=== PATIENT | male | born 1960 | race Caucasian/White ===

== ENCOUNTER → 2023-06-02 | Emergency (ER) | payer OTHER ==
[~2023-06-02] MED LIST: ACETAMINOPHEN 500 MG TAB ONE
--- NOTE | 2023-06-02 11:21 | RAD REPORT ---
EXAM DESCRIPTION: CT - Head C Spine Mpr Wo Con - 06/02/2023 11:05 am CLINICAL HISTORY: Head and neck injury status post fall. Head and neck pain COMPARISON: None. TECHNIQUE: Computed axial tomography of the head and cervical spine was obtained. Sagittal and coronal reconstruction was performed. All CT scans are performed using dose optimization technique as appropriate and may include automated exposure control or mA/KV adjustment according to patient size. FINDINGS: An intracranial bleed is not seen. The ventricles are normal in caliber. No significant hypodensity within the brain. An extra-axial fluid collection is not noted. Fluid within the visualized sinuses and mastoids is not seen A cervical fracture is not visualized. No dislocation is noted. Moderate to marked spondylosis cervical spine IMPRESSION: No acute intracranial abnormality is seen. A cervical fracture is not visualized. If the patient continues to have symptoms to suggest intracranial /spinal cord pathology then MRI wou ld be recommended
--- NOTE | 2023-06-02 12:01 | ER ---
Nurse's Notes [facility] Name: Alistair Bettencourt Age: 63 yrs Sex: Male : 1960 Arrival Date: 06/02/2023 Time: 10:44 Bed 7 Private MD: Diagnosis: Mechanical fall;Closed head injury Presentation: 06/01 10:41 Chief complaint: EMS states: Slipped and fell, inmate reported LOC, awake/alert upon [facility] medic arrival. co head, neck, back pain. C collar in place. Does not take blood thinners. 10:41 Acuity: BRENNAN 3 nj1 10:41 Method Of Arrival: EMS: [facility] nj1 10:41 Care prior to arrival: Cervical collar in place. Glucose check: 123 Oxygen nj1 administered. via nasal cannula. Mechanism of Injury: Fall from standing position. Trauma event details: Injury occurred: [facility]. 10:45 Coronavirus screen: Vaccine status: Patient reports receiving the 2nd dose of the covid nj1 vaccine. Ebola Screen: Patient denies travel to an Ebola-affected area in the 21 days before illness onset. Risk Assessment: Do you want to hurt yourself or someone else? Patient reports no desire to harm self or others. 10:45 Initial Sepsis Screen: Does the patient meet any 2 criteria? HR > 90 bpm. No. Patient's [facility] initial sepsis screen is negative. Does the patient have a suspected source of infection? No. Patient's initial sepsis screen is negative. Onset of symptoms. Historical: - Allergies: 10:57 No Known Allergies; nj1 - PMHx: 10:53 Chronic obstructive lung disease; Hepatitis C; Gastric reflux; nj1 - Immunization history:: Client reports receiving the 2nd dose of the Covid vaccine. - Social history:: Smoking status: Patient/guardian denies using tobacco, but has a distant history of tobacco abuse. Screenin:56 [facility] ED Fall Risk Assessment (Adult) History of falling in the last 3 months, [facility] including since admission Yes- single mechanical fall (1 pt) Confusion or Disorientation No (0 pts) Intoxicated or Sedated No (0 pts) Impaired Gait No (0 pts) Mobility Assist Device Used No (0 pt) Altered Elimination No (0 pt) Score/Fall Risk Level 0 - 2 = Low Risk Oriented to surroundings, Maintained a safe environment, Hourly rounding (assess needs \T\ fall precautionary measures) done. Abuse screen: Denies threats or abuse. Denies injuries from another. Nutritional screening: No deficits noted. Tuberculosis screening: No symptoms or risk factors identified. Primary Survey: 10:58 NO uncontrolled hemorrhage observed. Breathing/Chest: Spontaneous respiratory effort, nj1 equal unlabored respirations, breath sounds clear bilaterally, regular pattern, symmetrical chest rise and fall. Circulation: No external hemorrhage present. Regular and strong central pulse, skin warm/dry/normal color. Disability Client is alert. Assessment: 10:54 General: Appears in no apparent distress. uncomfortable, Behavior is calm, cooperative, nj1 appropriate for age. Pain: Complains of pain in head, neck and back Pain currently is 5 out of 10 on a pain scale. Neuro: Level of Consciousness is awake, alert, obeys commands, Oriented to person, place, time, situation. Cardiovascular: Patient's skin is warm and dry. Respiratory: Airway is patent Respiratory effort is even, unlabored. 11:00 Injury Description: Abrasion sustained to scalp is minimal bleeding, no need for nj1 pressure dressing. 11:04 Reassessment: In imaging. nj1 12:40 Reassessment: Patient appears in no apparent distress at this time. Patient is alert, nj1 oriented x 3, equal unlabored respirations, skin warm/dry/pink. Patient states feeling better. Vital Signs: 10:45 BP 99 / 81; Pulse 106; Resp 18; Temp 97.5(O); Pulse Ox 94% on R/A; Weight 85.28 kg; nj1 Height 5 ft. 9 in. ; Pain 5/10; 12:00 BP 111 / 80; Pulse 97; Resp 17; Pulse Ox 96% on R/A; nj1 12:40 BP 113 / 77; Pulse 97; Resp 16; Pulse Ox 96% on R/A; nj1 10:45 Body Mass Index 27.76 (85.28 kg, 175.26 cm) nj1 10:45 Pain Scale: Adult nj1 Ron Coma Score: 10:58 Eye Response: spontaneous(4). Motor Response: obeys commands(6). Verbal Response: nj1 oriented(5). Total: 15. Trauma Score (Adult): 10:58 Eye Response: spontaneous(1); Verbal Response: oriented(1); Motor Response: obeys nj1 commands(2); Systolic BP: > 89 mm Hg(4); Respiratory Rate: 10 to 29 per min(4); Section Score: 15; Trauma Score: 12 ED Course: 10:48 Patient arrived in ED. aa5 10:48 Jonatan Mares MD is Attending Physician. rt 10:49 Aparna Moore, RN is Primary Nurse. nj1 10:50 Oxygen administration via nasal cannula \T\ 1L/min. Thermoregulation: warm blanket given nj1 to patient. 10:52 Triage completed. nj1 10:54 Arm band placed on right wrist. nj1 11:00 Patient has correct armband on for positive identification. Bed in low position. Call nj1 light in reach. Side rails up X 1. [facility] guards at bedside. Provided Education on: call light, c collar. 11:06 CT Head C Spine In Process Unspecified. EDMS 12:40 Wound care: to abrasion, located on scalp was cleaned with with Hydroxide peroxide, nj1 Patient tolerated well. 12:45 No provider procedures requiring assistance completed. nj1 12:45 Patient did not have IV access during this emergency room visit. nj1 Administered Medications: 11:20 Drug: Acetaminophen PO 1000 mg PO once Route: PO; nj1 12:45 Follow up: Response: No adverse reaction; Pain is decreased nj1 Medication: 12:50 VIS not applicable for this client. nj1 Outcome: 12:00 Discharge ordered by . rt 12:45 Discharged to [employer] nj1 12:45 Condition: stable 12:45 Discharge instructions given to patient, school crossing guard Instructed on discharge instructions, follow up and referral plans. Demonstrated understanding of instructions, follow-up care, 12:57 Patient left the ED. nj1 Signatures: Dispatcher [employer] EDLA Michelle Tinoco RN RN aa5 Jonatan Mares MD MD rt Aparna Moore RN RN nj1 Corrections: (The following items were deleted from the chart) 13:04 10:54 General: Appears in no apparent distress. uncomfortable, Behavior is calm, nj1 cooperative, appropriate for age, nj1
--- NOTE | 2023-06-02 12:01 | EDPHYS ---
Physician Documentation [facility] Name: Alistair Bettencourt Age: 63 yrs Sex: Male : 1960 Arrival Date: 06/02/2023 Time: 10:44 Bed 7 Private MD: ED Physician Jonatan Mares HPI: 06/01 10:49 This 63 yrs old Male presents to ER via Unassigned with complaints of Fall Injury. rt 10:49 Patient presents to the ED with a slip and fall with injury to the back of the head rt that occurred about 1 hour prior to arrival. This occurred at present. The patient reportedly did have a loss of consciousness with spontaneous return of consciousness. Reports an abrasion to the back of the head. Reports neck pain. Denies other acute complaints at this time, symptoms are mild in severity, no other aggravating or alleviating factors.. Historical: - Allergies: 10:57 No Known Allergies; nj1 - PMHx: 10:53 Chronic obstructive lung disease; Hepatitis C; Gastric reflux; nj1 - Immunization history:: Client reports receiving the 2nd dose of the Covid vaccine. - Social history:: Smoking status: Patient/guardian denies using tobacco, but has a distant history of tobacco abuse. ROS: 10:49 Constitutional: Negative for fever, chills, and weight loss, Respiratory: Negative for rt shortness of breath, cough, wheezing, and pleuritic chest pain, Abdomen/GI: Negative for abdominal pain, nausea, vomiting, diarrhea, and constipation, MS/Extremity: Negative for injury and deformity, Psych: Negative for depression, anxiety, suicide ideation, homicidal ideation, and hallucinations, 10:49 Neck: Positive for pain with movement, tenderness, 10:49 Neuro: Positive for headache, loss of consciousness, Exam: 10:49 Constitutional: This is a well developed, well nourished patient who is awake, alert, rt and in no acute distress. Chest/axilla: Normal chest wall appearance and motion. Nontender with no deformity. No lesions are appreciated. Cardiovascular: Regular rate and rhythm with a normal S1 and S2. No gallops, murmurs, or rubs. Normal PMI, no JVD. No pulse deficits. Respiratory: Lungs have equal breath sounds bilaterally, clear to auscultation and percussion. No rales, rhonchi or wheezes noted. No increased work of breathing, no retractions or nasal flaring. Abdomen/GI: Soft, non-tender, with normal bowel sounds. No distension or tympany. No guarding or rebound. No evidence of tenderness throughout. Back: No spinal tenderness. No costovertebral tenderness. Full range of motion. Skin: Warm, dry with normal turgor. Normal color with no rashes, no lesions, and no evidence of cellulitis. MS/ Extremity: Pulses equal, no cyanosis. Neurovascular intact. Full, normal range of motion. Neuro: Awake and alert, GCS 15, oriented to person, place, time, and situation. Cranial nerves II-XII grossly intact. Motor strength 5/5 in all extremities. Sensory grossly intact. Cerebellar exam normal. Normal gait. Psych: Awake, alert, with orientation to person, place and time. Behavior, mood, and affect are within normal limits. 10:49 Head/face: Abrasion to the posterior scalp, no active bleeding, no other external evidence of trauma. 10:49 Neck: Mild tenderness diffusely, no step-offs, Vital Signs: 10:45 BP 99 / 81; Pulse 106; Resp 18; Temp 97.5(O); Pulse Ox 94% on R/A; Weight 85.28 kg; nj1 Height 5 ft. 9 in. ; Pain 5/10; 12:00 BP 111 / 80; Pulse 97; Resp 17; Pulse Ox 96% on R/A; nj1 12:40 BP 113 / 77; Pulse 97; Resp 16; Pulse Ox 96% on R/A; nj1 10:45 Body Mass Index 27.76 (85.28 kg, 175.26 cm) nj1 10:45 Pain Scale: Adult nj1 Ron Coma Score: 10:58 Eye Response: spontaneous(4). Motor Response: obeys commands(6). Verbal Response: nj1 oriented(5). Total: 15. Trauma Score (Adult): 10:58 Eye Response: spontaneous(1); Verbal Response: oriented(1); Motor Response: obeys nj1 commands(2); Systolic BP: > 89 mm Hg(4); Respiratory Rate: 10 to 29 per min(4); [place] Score: 15; Trauma Score: 12 MDM: 10:48 Patient medically screened. rt 13:55 Differential diagnosis: Concussion, intracranial hemorrhage, abrasion, skull fracture. rt Data reviewed: vital signs, nurses notes, radiologic studies. Independent interpretation of the following test(s) in the Emergency Department CT Scan: My interpretation is No intracranial hemorrhage seen on interpretation of CT scan images. Test considered but Not performed: Other Details Patient reports clear slip and fall, denies syncopal symptoms. EKG, labs are not indicated. Care significantly affected by the following chronic conditions: Chronic Obstructive Pulmonary Disease. Counseling: I had a detailed discussion with the patient and/or guardian regarding the historical points, exam findings, and any diagnostic results supporting the discharge/admit diagnosis, radiology results, the need for outpatient follow up. 06/01 10:49 Order name: CT Head C Spine; Complete Time: 11:23 rt Administered Medications: 11:20 Drug: Acetaminophen PO 1000 mg PO once Route: PO; nj1 12:45 Follow up: Response: No adverse reaction; Pain is decreased nj1 Disposition Summary: 06/02/23 12:00 Discharge Ordered Notes: Location: [employer] rt Problem: new rt Symptoms: have improved rt Condition: Stable rt Diagnosis - Mechanical fall rt - Closed head injury rt Followup: rt - With: Private Physician - When: 2 - 3 days - Reason: Discharge Instructions: - Discharge Summary Sheet rt - Concussion, Adult rt Forms: - Medication Reconciliation Form rt - Thank You Letter rt - Antibiotic Education rt - Prescription Opioid Use rt - Patient Portal Instructions rt - Leadership Thank You Letter rt Signatures: Dispatcher [employer] Jonatan Leahy MD MD rt Aparna Moore RN RN nj1
[2023-06-02 13:23] VITALS: BP 99/81; TEMP 97.5; O2SAT 94
== END ==
LOC: ER 10:44
DX: S00.81XA Abrasion of other part of head, initial encounter (principal); W01.0XXA Fall on same level from slipping, tripping and stumbling without subsequent striking against object, initial encounter
CPT/HCPCS: 70450; 72125; 99285

== ENCOUNTER 2023-10-27 13:42 | Emergency (ER) | payer OTHER ==
[2023-10-27 14:13] LABS: Absolute Basophils 0.1 K/uL (0-0.5); Absolute Eosinophils 0.1 K/uL (0-0.5); Absolute Lymphocytes (CBC) 1.3 K/uL (0.7-4.9); Absolute Monocytes 0.6 K/uL (0.1-1.3); Absolute Neutrophil 7.3 K/uL (1.8-8.0); Basophils % 0.5 % (0-1.3); Eosinophils % 0.9 % (0-4.4); Hematocrit 39.2 % (39.6-49.0); Hemoglobin 13.3 g/dL (13.6-17.9); MCHC 33.9 g/dL (32.0-36.0); MCV 85.6 fL (80-100); MPV 7.4 fL (7.6-11.3); Monocytes % 6.5 % (3.3-12.3); Neutrophils % 78.1 % (41.7-73.7); Nucleated RBC Absolute Count 0.1 (0-0); Nucleated Red Blood Cells % 0.7 % (0-0); Platelets 381 thou/uL (152-406); RBC Red Blood Cell Count 4.58 M/uL (4.33-5.43); Red Cell Distribution Width 14.6 % (12.1-15.2)
[2023-10-27 14:23] LABS: Albumin 3.5 g/dL (3.4-5.0); Anion Gap 9.2 mEq/L (5.0-15.0); Bilirubin Direct 0.3 mg/dL (0-0.2); Bilirubin Indirect, Calculated 0.5 mg/dL (0.2-0.8); Bilirubin Total 0.8 mg/dL (0.2-1.0); Globulin 3.4 g/dL (2.3-3.5); Magnesium 2.1 mg/dL (1.6-2.4); Potassium 4.2 mEq/L (3.5-5.1); Protein, Total 6.9 g/dL (6.4-8.2); Troponin High Sensitivity 3.4 pg/mL (<58.9)
[2023-10-27] MEDS ORDERED: LIDOCAINE 1% MPF 5 ML VIAL ONE (14:23)
--- NOTE | 2023-10-27 14:34 | RAD REPORT ---
EXAM DESCRIPTION: CT - CTHCSPWOC - 10/27/2023 2:04 pm CLINICAL HISTORY: Trauma, head and neck injury. TRAUMA COMPARISON: Head C Spine Mpr Wo Con dated 06/02/2023 TECHNIQUE: Axial 5 mm thick images of the head were obtained. Axial 2 mm thick images of the cervical spine were obtained with sagittal and coronal reconstruction images generated and reviewed. All CT scans are performed using dose optimization technique as appropriate and may include automated exposure control or mA/KV adjustment according to patient size. FINDINGS: CT HEAD WITHOUT CONTRAST: No acute hemorrhage, hydrocephalus or extra-axial collection is identified.No areas of brain edema or midline shift. Mild dense fluid is seen in the right maxillary antrum. The paranasal sinuses and mastoids otherwise clear.The calvarium is intact. CT CERVICAL SPINE WITHOUT CONTRAST: No fracture or subluxation.Moderate midcervical degenerative spondylosis.No prevertebral soft tissues swelling is identified. IMPRESSION: No acute intracranial or cervical spine findings. Moderate multilevel cervical degenerative changes.
--- NOTE | 2023-10-27 15:11 | RAD REPORT ---
EXAM DESCRIPTION: RAD - Chest Single View - 10/27/2023 2:26 pm CLINICAL HISTORY: syncope Chest pain. COMPARISON: No comparisons FINDINGS: Portable technique limits examination quality. The lungs are grossly clear. The heart is normal in size. No displaced fractures. IMPRESSION: No acute intrathoracic process suspected.
--- NOTE | 2023-10-27 15:45 | ER ---
Nurse's Notes [facility] Name: Alistair Bettencourt Age: 63 yrs Sex: Male : 1960 Arrival Date: 10/27/2023 Time: 13:42 Bed 18 Private MD: Diagnosis: Syncope;Scalp laceration Presentation: 10/26 13:45 Chief complaint: EMS states: Inmate from [facility] experienced sudden syncopal rs5 episode while ambulating. Syncopal episode was unwitnessed. Pt reports positive LOC, no blood thinners. One inch lack to back of head. Denies dizziness or blurry vision. Coronavirus screen: At this time, the client does not indicate any symptoms associated with coronavirus-19. Ebola Screen: No symptoms or risks identified at this time. Initial Sepsis Screen: Does the patient meet any 2 criteria? No. Patient's initial sepsis screen is negative. Does the patient have a suspected source of infection? No. Patient's initial sepsis screen is negative. Risk Assessment: Do you want to hurt yourself or someone else? Patient reports no desire to harm self or others. Onset of symptoms was October 27, 2023. Care prior to arrival: Medication(s) given: 1g Ofirmev IV initiated. 20 GA, in the right forearm. 13:45 Method Of Arrival: EMS: [facility] 13:45 Acuity: BRENNAN 3 rs5 Historical: - Allergies: 13:49 No Known Allergies; rs5 - PMHx: 13:49 Chronic obstructive lung disease; Gastric Reflux; Hepatitis C; rs5 - PSHx: 13:49 None; rs5 - Immunization history:: Adult Immunizations up to date. - Infectious Disease History:: Denies. - Social history:: Smoking status: Patient/guardian denies using tobacco, but has a distant history of tobacco abuse. - Family history:: not pertinent. Screenin:46 [facility] ED Fall Risk Assessment (Adult) History of falling in the last 3 months, rs5 including since admission Yes- single mechanical fall (1 pt) Confusion or Disorientation No (0 pts) Intoxicated or Sedated No (0 pts) Impaired Gait No (0 pts) Mobility Assist Device Used No (0 pt) Altered Elimination No (0 pt) Score/Fall Risk Level 0 - 2 = Low Risk Oriented to surroundings, Maintained a safe environment. Abuse screen: Denies threats or abuse. Nutritional screening: No deficits noted. Tuberculosis screening: No symptoms or risk factors identified. Assessment: 13:46 General: Appears in no apparent distress. uncomfortable, Behavior is calm, cooperative. rs5 Pain: Complains of pain in back of head Pain currently is 3 out of 10 on a pain scale. Quality of pain is described as aching, Is continuous. Neuro: Level of Consciousness is awake, alert, obeys commands, Oriented to person, place, time, situation. Cardiovascular: Patient's skin is warm and dry. Rhythm is regular. Respiratory: Airway is patent Respiratory effort is even, unlabored, Respiratory pattern is regular, symmetrical. GI: Abdomen is round non-distended, Abd is soft and non tender X 4 quads. : No signs and/or symptoms were reported regarding the genitourinary system. EENT: No signs and/or symptoms were reported regarding the EENT system. Derm: Skin is intact, one inch laceration noted to back of head. No active bleeding noted Skin is pink, warm \T\ dry. 13:46 Musculoskeletal: Range of motion: intact in all extremities. rs5 15:01 Reassessment: Patient and/or family updated on plan of care and expected duration. Pain rs5 level reassessed. Patient is alert, oriented x 3, equal unlabored respirations, skin warm/dry/pink. 15:50 Reassessment: No changes from previously documented assessment. rs5 Vital Signs: 13:45 BP 116 / 82; Pulse 71; Resp 17; Temp 97.8(O); Pulse Ox 94% on R/A; rs5 15:15 BP 120 / 84; Pulse 75; Resp 16; Pulse Ox 98% on R/A; rs5 15:55 BP 122 / 81; Pulse 76; Resp 16; Pulse Ox 99% ; rs5 ED Course: 13:45 Patient arrived in ED. rs5 13:46 Jonatan Mares MD is Attending Physician. rt 13:46 Patient has correct armband on for positive identification. Placed in gown. Bed in low rs5 position. Call light in reach. Side rails up X2. 13:46 No provider procedures requiring assistance completed. rs5 13:49 Triage completed. rs5 14:06 CT Head C Spine In Process Unspecified. EDMS 14:16 Freddie Zhang, RN is Primary Nurse. rs5 14:28 XRAY Chest (1 view) In Process Unspecified. EDMS 15:55 IV discontinued, intact, bleeding controlled, No redness/swelling at site. Pressure rs5 dressing applied. Administered Medications: 15:15 Drug: Lidocaine Infiltration (1 %) 5 ml 5 ml Infiltration once; to bedside {Note: adm rs5 by provider to back of head.} Volume: 5 ml; Route: Infiltration; 15:25 Follow up: Response: No adverse reaction rs5 15:44 Drug: Ketorolac IVP 15 mg IVP once Route: IVP; Site: right antecubital; rs5 16:00 Follow up: Response: No adverse reaction; Pain is decreased rs5 Medication: 15:15 VIS not applicable for this client. rs5 Outcome: 15:44 Discharge ordered by MD. rt 16:00 Discharged to [facility] rs5 16:00 Condition: stable 16:00 Discharge instructions given to patient, Instructed on discharge instructions, follow up and referral plans. Demonstrated understanding of instructions, follow-up care, 16:04 Patient left the ED. rs5 Signatures: Dispatcher [employer] EDMS Jonatan Mares MD MD rt Freddie Zhang, RN RN rs5 Corrections: (The following items were deleted from the chart) 13:50 13:45 BP 116 / 82; Pulse 17bpm; Resp 70bpm; Pulse Ox 94% RA; Temp 97.8F Oral; rs5 rs5 18:14 18:14 Condition: stable rs5 rs5 18:14 18:14 Discharge instructions given to patient, Instructed on discharge instructions, rs5 follow up and referral plans. Demonstrated understanding of instructions, follow-up care, rs5 18:14 18:14 Discharged to [facility] rs5 rs5
--- NOTE | 2023-10-27 15:45 | EDPHYS ---
Physician Documentation [facility] [place] Name: Alistair Bettencourt Age: 63 yrs Sex: Male : 1960 Arrival Date: 10/27/2023 Time: 13:42 Bed 18 Private MD: ED Physician Jonatan Mares HPI: 10/26 14:17 This 63 yrs old Male presents to ER via EMS with complaints of Syncope. rt 14:17 Patient presents to the ED following a syncopal event. Patient was at present, was rt walking, fell down hitting his head. Reports pain to his head, neck. Denies other acute complaints at this time, symptoms are moderate in severity, no other aggravating alleviating factors.. Historical: - Allergies: 13:49 No Known Allergies; rs5 - PMHx: 13:49 Chronic obstructive lung disease; Gastric Reflux; Hepatitis C; rs5 - PSHx: 13:49 None; rs5 - Immunization history:: Adult Immunizations up to date. - Infectious Disease History:: Denies. - Social history:: Smoking status: Patient/guardian denies using tobacco, but has a distant history of tobacco abuse. - Family history:: not pertinent. ROS: 14:17 Constitutional: Negative for fever, chills, and weight loss, Cardiovascular: Negative rt for chest pain, palpitations, and edema, Respiratory: Negative for shortness of breath, cough, wheezing, and pleuritic chest pain, Abdomen/GI: Negative for abdominal pain, nausea, vomiting, diarrhea, and constipation, Psych: Negative for depression, anxiety, suicide ideation, homicidal ideation, and hallucinations, 14:17 Skin: Positive for laceration(s), Negative for 14:17 Neuro: Positive for headache, syncope, Exam: 14:17 Constitutional: This is a well developed, well nourished patient who is awake, alert, rt and in no acute distress. Chest/axilla: Normal chest wall appearance and motion. Nontender with no deformity. No lesions are appreciated. Cardiovascular: Regular rate and rhythm with a normal S1 and S2. No gallops, murmurs, or rubs. Normal PMI, no JVD. No pulse deficits. Respiratory: Lungs have equal breath sounds bilaterally, clear to auscultation and percussion. No rales, rhonchi or wheezes noted. No increased work of breathing, no retractions or nasal flaring. Abdomen/GI: Soft, non-tender, with normal bowel sounds. No distension or tympany. No guarding or rebound. No evidence of tenderness throughout. Skin: Warm, dry with normal turgor. Normal color with no rashes, no lesions, and no evidence of cellulitis. MS/ Extremity: Pulses equal, no cyanosis. Neurovascular intact. Full, normal range of motion. Neuro: Awake and alert, GCS 15, oriented to person, place, time, and situation. Cranial nerves II-XII grossly intact. Motor strength 5/5 in all extremities. Sensory grossly intact. Cerebellar exam normal. Normal gait. 14:17 Head/face: 4 cm laceration to the right posterior parietal region, no active bleeding. 15:49 ECG was reviewed by the Attending Physician. rt Vital Signs: 13:45 BP 116 / 82; Pulse 71; Resp 17; Temp 97.8(O); Pulse Ox 94% on R/A; rs5 15:15 BP 120 / 84; Pulse 75; Resp 16; Pulse Ox 98% on R/A; rs5 15:55 BP 122 / 81; Pulse 76; Resp 16; Pulse Ox 99% ; rs5 Laceration: 15:20 Wound Repair of 5cm ( 2.0in ) subcutaneous laceration to scalp. Distal rt neuro/vascular/tendon intact. Anesthesia: Local anesthetic administered with 2 mls of 1% lidocaine. Wound prep: Extensive cleansing by nurse. Skin closed with 5 1-0 Shabbir using staple gun. Dressed with 4x4's. Patient tolerated well. MDM: 13:46 Patient medically screened. rt 15:49 Differential Diagnosis: Syncope, intracranial hemorrhage, dysrhythmia, anemia. Data rt reviewed: vital signs, nurses notes. Consideration of Admission/Observation Escalation of care including admission/observation considered. I considered the following discharge prescriptions or medication management in the emergency department Medications were administered in the Emergency Department. See MAR. Independent interpretation of the following test(s) in the Emergency Department CT Scan: My interpretation is No intracranial hemorrhage seen on my interpretation of CT scan images. Care significantly affected by the following chronic conditions: Chronic Obstructive Pulmonary Disease. Counseling: I had a detailed discussion with the patient and/or guardian regarding the historical points, exam findings, and any diagnostic results supporting the discharge/admit diagnosis, lab results, radiology results, the need for outpatient follow up, to return to the emergency department if symptoms worsen or persist or if there are any questions or concerns that arise at home. Response to treatment: the patient's symptoms have markedly improved after treatment. 10/26 13:47 Order name: Basic Metabolic Panel; Complete Time: 14:27 rt 10/26 13:47 Order name: CBC with Diff; Complete Time: 14:27 rt 10/26 13:47 Order name: LFT's; Complete Time: 14:27 rt 10/26 13:47 Order name: Magnesium; Complete Time: 14:27 rt 10/26 13:47 Order name: Troponin HS; Complete Time: 14:27 rt 10/26 13:47 Order name: XRAY Chest (1 view); Complete Time: 15:16 rt 10/26 13:47 Order name: CT Head C Spine; Complete Time: 15:16 rt 10/26 13:47 Order name: Cardiac monitoring; Complete Time: 13:50 rt 10/26 13:47 Order name: EKG - Nurse/Tech; Complete Time: 13:50 rt 10/26 13:47 Order name: IV Saline Lock; Complete Time: 13:50 rt 10/26 13:47 Order name: Labs collected and sent; Complete Time: 13:50 rt 10/26 13:47 Order name: O2 Per Protocol; Complete Time: 13:50 rt 10/26 13:47 Order name: O2 Sat Monitoring; Complete Time: 13:50 rt 10/26 14:15 Order name: Wound Care; Complete Time: 14:44 rt EC:49 Rate is 90 beats/min. Rhythm is regular, Normal Sinus Rhythm with No ectopy. QRS [place] rt is Normal. NC interval is normal. QRS interval is normal. QT interval is normal. No Q waves. T waves are Normal. No ST changes noted. Interpreted by me. Administered Medications: 15:15 Drug: Lidocaine Infiltration (1 %) 5 ml 5 ml Infiltration once; to bedside {Note: adm rs5 by provider to back of head.} Volume: 5 ml; Route: Infiltration; 15:25 Follow up: Response: No adverse reaction rs5 15:44 Drug: Ketorolac IVP 15 mg IVP once Route: IVP; Site: right antecubital; rs5 16:00 Follow up: Response: No adverse reaction; Pain is decreased rs5 Disposition Summary: 10/27/23 15:44 Discharge Ordered Notes: Location: Home rt Problem: new rt Symptoms: have improved rt Condition: Stable rt Diagnosis - Syncope rt - Scalp laceration rt Followup: rt - With: Private Physician - When: 10 - 14 days - Reason: Staple/Suture removal Discharge Instructions: - Discharge Summary Sheet rt - Laceration Care, Adult rt - Syncope rt Forms: - Medication Reconciliation Form rt - Antibiotic Education rt - Prescription Opioid Use rt - Patient Portal Instructions rt - Leadership Thank You Letter rt Signatures: Dispatcher [employer] EDMS Jonatan Mares MD MD rt Freddie Zhang RN RN rs5 Corrections: (The following items were deleted from the chart) 13:47 13:47 Head C Spine MPR Wo [email or web address] ordered. EDMS EDMS
[2023-10-27] MEDS ORDERED: KETOROLAC 30 MG/ML INJ ONE (16:02)
[2023-10-27 16:09] VITALS: TEMP 97.8
[2023-10-27 16:11] VITALS: BP 120/84; O2SAT 98
--- NOTE | 2023-10-30 13:54 | EKG ---
Test Date: 2023-10-27 Test Time: 15:34:50 Financial Assistance Advisor: [place] MEASUREMENT RESULTS: Intervals: Rate: 90 WA: 146 QRSD: 64 QT: 376 QTc: 459 [place]: P: 40 WA: 146 QRS: 46 T: 44 INTERPRETIVE STATEMENTS: Normal sinus rhythm Low voltage QRS Borderline ECG No previous ECG available for comparison Electronically Signed On 10-30-23 13:47:40 CDT by Vincent Hawk
== END 2023-10-27 16:04 | disposition home or self-care (01) ==
LOC: ER 13:42
PROC: 0HQ0XZZ Repair Scalp Skin, External Approach (ICD-10-PCS; principal; 2023-10-27)
DX: S01.01XA Laceration without foreign body of scalp, initial encounter (principal); W18.30XA Fall on same level, unspecified, initial encounter
CPT/HCPCS: 85025; 80048; 36415; 83735; 80076; 84484; 70450; 72125; 71045; 96374; 99284; 12002; J2001; 93005